=== PATIENT | female | born 1960 | race Caucasian/White ===

== ENCOUNTER 2020-07-06 00:55 | Emergency (ER) | payer OTHER ==
[2020-07-06 01:06] VITALS: BP 142/93; PULSE 93; TEMP 97.6; BMI 18.8
[2020-07-06] MEDS ORDERED: SILVER NITRATE 75% APPLIC STCK 1 PKT EACH ONE ×2 (01:12→01:14)
[2020-07-06] MEDS ORDERED: LIDOCAINE HCL 2% (20ML MULTI-DOSE VIAL) ONE (01:17)
[2020-07-06] MEDS ORDERED: SULFAMETHOXAZOLE/TRIMETHOPRIM 800MG/160MG D.S. TABLET PO ONE (01:29)
[2020-07-06] MEDS ORDERED: SULFAMETHOXAZOLE/TRIMETHOPRIM 800MG/160MG D.S. TABLET ONE (01:30)
== END 2020-07-06 01:38 | disposition home or self-care (01) ==
LOC: FER 00:55
DX: L60.0 Ingrowing nail (principal)
CPT/HCPCS: 99283-25

== ENCOUNTER 2021-06-09 16:15 | Emergency (ER) | payer OTHER ==
[2021-06-09 16:36] VITALS: BP 143/87; PULSE 98; TEMP 99; BMI 19.3
== END 2021-06-09 16:35 | disposition home or self-care (01) ==
LOC: FER 16:15
DX: Z20.822 Contact with and (suspected) exposure to COVID-19 (principal)
CPT/HCPCS: 99283-25; C9803; U0003; U0005